=== PATIENT | female | born 1945 | race Caucasian/White ===

== ENCOUNTER 2018-10-15 21:44 | Observation (INO) ==
[2018-10-15] MEDS ORDERED: SODIUM CHLORIDE 0.9% 1,000 ML IV STA (21:58)
[2018-10-15] MEDS ORDERED: ONDANSETRON 4 MG/2 ML VIAL IV ONE (22:45)
[2018-10-15] MEDS ORDERED: MORPHINE 4 MG/1 ML VIAL IV STA (22:45)
[2018-10-15 22:58] LABS: Basophils # 0.1 10*3/uL (0.0-0.2); Basophils % 0.6 % (0.0-0.8); Eosinophils # 0.1 10*3/uL (0.0-0.87); Eosinophils % 0.8 % (0.00-10.9); Hemoglobin 13.2 GM/DL (12.0-16.0); Immature Granulocytes % 0.3 %; Immature Granulocytes Absolute 0.03 #; Lymphocytes # 0.6 10*3/uL (1.4-4.0); Lymphocytes % 6.7 % (21.3-54.2); Mean Corpuscular HGB Conc 32.2 GM/DL (32-36); Mean Corpuscular Volume 93.6 FL (87-102); Mean Platelet Volume 11.4 FL (9.6-12.0); Monocytes % 4.3 % (1.7-12.7); Neutrophils % 87.3 % (38.7-73.9); Platelet Count 290 T/CUMM (130-400); Red Blood Count 4.38 MC/CUMM (3.8-5.5); Red Cell Distribution Width 12.9 % (9.3-17.3); White Blood Count 9.1 T/CUMM (4-12)
[2018-10-15 23:50] LABS: Apearance,Urine CLOUDY (Clear); Bacteria,Urine Occasional /HPF (Few); Bilirubin,Urine Negative (Negative); Blood, Urine Negative (Negative); Glucose,Urine (UA) 50 mg/dL (Negative); Hyaline Casts,Urine 13 /LPF (0-3); Ketones,Urine 80 mg/dL (Negative); Mucus,Urine Few /LPF (Occasional); Nitrite,Urine Negative (Negative); Protein,Urine Negative; RBC,Urine 10 /HPF (0-4); Squamous Epithelial Cell,Urine Occasional /HPF (0-10); Urine Color Amber (Yellow); WBC,Urine 3 /HPF (0-6)
[2018-10-16 00:10] LABS: Albumin 3.3 G/DL (3.4-5.0); Bilirubin,Total 0.6 MG/DL (0.2-1.0); Calcium 8.3 MG/DL (8.5-10.1); Total Protein 6.5 G/DL (6.4-8.3)
[2018-10-16] MEDS ORDERED: TICAGRELOR 90 MG TABLET ONE (00:15)
[2018-10-16] MEDS ORDERED: NITROGLYCERIN 2% OINT 1 INCH/GM PACK TOP ONE (00:15)
[2018-10-16] MEDS ORDERED: ASPIRIN 325 MG TABLET ONE (00:16)
[2018-10-16] MEDS ORDERED: HEPARIN 5,000 UNIT/1 ML VIAL ONE (00:16)
[2018-10-16] MEDS ORDERED: PIPERACILLIN/TAZOBACTAM 3,375 MG in SODIUM CHLORIDE 0.9% 100 ML IV STA (02:09)
[2018-10-16] MEDS ORDERED: ACETAMINOPHEN 325 MG TABLET PO PRN (03:05)
[2018-10-16] MEDS ORDERED: MORPHINE 4 MG/1 ML VIAL IV PRN (03:05)
[2018-10-16] MEDS ORDERED: ONDANSETRON 4 MG/2 ML VIAL IV PRN (03:05)
[2018-10-16 05:05] LABS: Basophils % 0.3 % (0.0-0.8); Bilirubin,Total 0.7 MG/DL (0.2-1.0); Calcium 8.2 MG/DL (8.5-10.1); Eosinophils % 0.3 % (0.00-10.9); Hematocrit 37.2 VOL% (35.7-47.0); Hemoglobin 12.1 GM/DL (12.0-16.0); Immature Granulocytes % 0.3 %; Immature Granulocytes Absolute 0.02 #; Lymphocytes % 13.4 % (21.3-54.2); Mean Corpuscular HGB Conc 32.5 GM/DL (32-36); Mean Corpuscular Volume 93.7 FL (87-102); Mean Platelet Volume 11.1 FL (9.6-12.0); Monocytes % 9.1 % (1.7-12.7); Neutrophils % 76.6 % (38.7-73.9); Osmolality,Calculated 275.5 MOS/KG (273-304); Platelet Count 234 T/CUMM (130-400); Red Blood Count 3.97 MC/CUMM (3.8-5.5); Red Cell Distribution Width 12.8 % (9.3-17.3); Total Protein 6.1 G/DL (6.4-8.3); White Blood Count 7.5 T/CUMM (4-12)
[2018-10-16] MEDS: DEXTROSE 5% NACL 0.45% 1,000 ML IV SCH ×2 (07:30→14:00)
[2018-10-16] MEDS: PANTOPRAZOLE 40 MG TABLET PO SCH (10:47)
[2018-10-16] MEDS: PIPERACILLIN/TAZOBACTAM 3,375 MG in SODIUM CHLORIDE 0.9% 100 ML IV SCH ×2 (10:47→18:15)
[2018-10-17] MEDS: DEXTROSE 5% NACL 0.45% 1,000 ML IV SCH ×2 (01:23→11:55)
[2018-10-17] MEDS: PIPERACILLIN/TAZOBACTAM 3,375 MG in SODIUM CHLORIDE 0.9% 100 ML IV SCH ×2 (02:47→09:39)
[2018-10-17 04:49] LABS: Basophils # 0.1 10*3/uL (0.0-0.2); Eosinophils # 0.6 10*3/uL (0.0-0.87); Eosinophils % 10.7 % (0.00-10.9); Hematocrit 36.4 VOL% (35.7-47.0); Hemoglobin 11.5 GM/DL (12.0-16.0); Immature Granulocytes % 0.2 %; Immature Granulocytes Absolute 0.01 #; Lymphocytes # 1.3 10*3/uL (1.4-4.0); Lymphocytes % 25.6 % (21.3-54.2); Mean Corpuscular HGB Conc 31.6 GM/DL (32-36); Mean Corpuscular Volume 95.3 FL (87-102); Mean Platelet Volume 12.2 FL (9.6-12.0); Monocytes % 13.4 % (1.7-12.7); Neutrophils % 49.1 % (38.7-73.9); Platelet Count 168 T/CUMM (130-400); Red Blood Count 3.82 MC/CUMM (3.8-5.5); Red Cell Distribution Width 13.2 % (9.3-17.3); White Blood Count 5.2 T/CUMM (4-12)
[2018-10-17 05:06] LABS: Calcium 8.3 MG/DL (8.5-10.1)
[2018-10-17] MEDS: PANTOPRAZOLE 40 MG TABLET PO SCH (09:39)
[2018-10-17] MEDS ORDERED: LOPERAMIDE 2 MG CAPSULE PO ONE (10:53)
[2018-10-17] MEDS ORDERED: AMOXICILLIN/CLAV 875 MG TABLET PO SCH (11:00)
[2018-10-17 11:13] VITALS: BP 115/69
== END 2018-10-17 11:20 | disposition home or self-care (01) ==
LOC: EDSEX → EDBD → EDUNIT# → N.ED 21:44 → N.EDINP 21:44 → N.3E 10-16 03:26
PROVIDERS: ADMIT Surgery; ATTEND Surgery